=== PATIENT | female | born 1945 | race Caucasian/White ===

== ENCOUNTER 2024-02-06 00:31 | Day surgery (SDC) | payer MEDICARE, SELFPAY ==
[2024-01-29 15:31] VITALS: BMI 27.7
--- NOTE | 2024-01-31 10:32 | PC.NURSE ---
cardiac clearance rec'd from dr moffett on . He asked pt hold her aspirin for 5 days prior to procedure. called pt to clarify as aspirin not listed, she states only takes a low dose asprirn and she forgets to take it most days. instructed her that per dr moffett she is to start holding starting 02/01/24. voiced understanding.
[2024-02-06 07:54] VITALS: BP 123/73; PULSE 85; RESP 18; TEMP 36.1; O2SAT 100; BMI 26.5
[2024-02-06] MEDS: LACTATED RINGERS 1,000 ML 150 ML IV CONT (08:02)
--- NOTE | 2024-02-06 09:39 | PM.IMHP ---
H&P: HPI History of Present Illness Date/Time: 02/06/24 09:39 Chief Complaint: Family history of colorectal cancer. Here for screening colonoscopy. Narrative: as above - last colonoscopy more than 5 years ago. Review of Systems Review of Systems: All systems reviewed & are unremarkable except as noted in HPI and below PMFSH Social History Social History Living arrangements: with family Spiritual care concerns: No Meds Home Medications and Allergies Home Medications Medication Instructions Recorded Confirmed Type carvedilol 3.125 mg tablet 3.125 mg PO BID 01/29/24 02/06/24 History ezetimibe 10 mg tablet 10 mg PO DAILY 01/29/24 02/06/24 History losartan 25 mg tablet 12.5 mg PO DAILY 01/29/24 02/06/24 History rosuvastatin 10 mg tablet 10 mg PO DAILY 01/29/24 02/06/24 History sotagliflozin 200 mg tablet 200 mg PO DAILY 01/29/24 02/06/24 History (Inpefa) spironolactone 25 mg tablet 25 mg PO DAILY 01/29/24 02/06/24 History aspirin 81 mg chewable tablet 81 mg PO DAILY 01/31/24 02/06/24 History Allergies Allergy/AdvReac Type Severity Reaction Status Date / Time codeine Allergy Rash Verified 02/06/24 07:47 shellfish derived Allergy Hives Verified 02/06/24 07:47 sacubitril [From Entresto] AdvReac Other Verified 02/06/24 07:47 valsartan [From Entresto] AdvReac Other Verified 02/06/24 07:47 Vital Signs Vital Signs - 24 hr 02/06/24 07:54 Temperature 97 F L Pulse Rate 85 Respiratory Rate 18 Blood Pressure 123/73 Pulse Oximetry 100 Oxygen Delivery Room Air Assessment and Plan Assessment and plan (1) Family history of colon cancer: Code(s): Z80.0 - Family history of malignant neoplasm of digestive organs Status: Acute Plan Patient deemed a good candidate for colonoscopy. Will proceed.
[2024-02-06 10:11] VITALS: BP 106/52; PULSE 65; RESP 23; O2SAT 99
[2024-02-06 10:21] VITALS: BP 112/55; PULSE 65; RESP 20; O2SAT 100
--- NOTE | 2024-02-06 10:25 | SUR.PHASEII ---
Wide QRS on monitor, notified and reviewed strip. No new orders at this time
[2024-02-06 10:31] VITALS: BP 165/93; PULSE 78; RESP 20; O2SAT 100
[2024-02-06 10:43] VITALS: BP 170/93; PULSE 73; RESP 22; O2SAT 100
--- NOTE | 2024-02-06 10:45 | SUR.PHASEII ---
notified of pt's elevated blood pressure, educated pt to take home medication, okay to discharge
== END 2024-02-06 11:01 | disposition home or self-care (01) ==
PROVIDERS: PCP Internal Medicine; Visit Provider Internal Medicine Gastroenterology
PROC: 0DJD8ZZ Inspection of Lower Intestinal Tract, Via Natural or Artificial Opening Endoscopic (ICD-10-PCS; CPT 45378; principal; 2024-02-06 09:00)
DX: Z12.11 Encounter for screening for malignant neoplasm of colon (principal); D12.2 Benign neoplasm of ascending colon; D12.3 Benign neoplasm of transverse colon; K63.5 Polyp of colon; K64.0 First degree hemorrhoids; Z79.82 Long term (current) use of aspirin; Z80.0 Family history of malignant neoplasm of digestive organs
CPT/HCPCS: 45385; 88305; J2003; J2704; J7120